=== PATIENT | female | born 1940 | race Caucasian/White ===

== ENCOUNTER 2017-03-08 13:21 | Emergency (ER) | payer OTHER ==
--- NOTE | 2017-03-08 15:35 | UC ---
Respiratory Complaint HPI - HPI Summary HPI Summary: Patient presents with 3-5 day onset complaints of cough, chest congestion. Last night she steamed herself over the sink and this morning she did cough up some sputum, she also report sinus pain, pressure, and green nasal discharge for one week. She states that this morning she also developed left eye redness, and green drainage. She denies any change in her vision, or eye pain. She denies any chest pain, dyspnea, fever, chills, nausea, vomiting or diarrhea. - History of Current Complaint Chief Complaint: UCRespiratory Stated Complaint: SINUS ISSUE EYE ISSUE Time Seen by Provider: 03/08/17 15:12 Hx Obtained From: Patient ?: No Onset/Duration: Gradual Onset, Lasting Days Timing: Constant Severity Initially: Mild Severity Currently: Moderate Character: Cough: Productive Aggravating Factors: Deep Breaths, Recumbent Position Alleviating Factors: Upright Position, Spontaneous Resolution Associated Signs And Symptoms: Positive: URI, Nasal Congestion, Sinus Discomfort - Risk Factors Pulmonary Embolism Risk Factors: Negative Cardiac Risk Factors: Negative Pseudomonas Risk Factors: Negative Tuberculosis Risk Factors: Negative - Allergies/Home Medications Allergies/Adverse Reactions: Allergies Allergy/AdvReac Type Severity Reaction Status Date / Time Latex Allergy Severe Anaphylatic Verified 03/08/17 13:54 Shock Sulfa Drugs Allergy Unknown Unknown Verified 03/08/17 13:54 Reaction Details BEE STINGS Allergy ANAPHYLACTI Uncoded 03/08/17 13:54 C PMH/Surg Hx/FS Hx/Imm Hx Previously Healthy: Yes - Surgical History Surgical History: Yes Surgery Procedure, Year, and Place: Carpal Tunnel Bilateral, Endarterectomy Left , Ovarian Cyst (ovary removed) - Family History Known Family History: Positive: Cardiac Disease - Social History Occupation: Retired Lives: Alone Alcohol Use: None Substance Use Type: None Smoking Status (MU): Never Smoked Tobacco - Immunization History Most Recent Influenza Vaccination: 2017 Review of Systems Constitutional: Negative Skin: Negative Eyes: Drainage, Eye Redness ENT: Negative Respiratory: Cough Cardiovascular: Negative Gastrointestinal: Negative Genitourinary: Negative Motor: Negative Is Patient Immunocompromised?: No All Other Systems Reviewed And Are Negative: Yes Physical Exam Triage Information Reviewed: Yes Appearance: Well-Appearing Vital Signs: Initial Vital Signs Temp 100.4 F 03/08/17 13:47 Pulse 81 03/08/17 13:47 Resp 14 03/08/17 13:47 BP 99/50 03/08/17 13:47 Pulse Ox 99 03/08/17 13:47 Eye Exam: Normal Eyes: Positive: Conjunctiva Inflamed, Discharge - left eye. no pain with movement of eyes laterally. eom intact. no periorbit swelling, rendess or pain. ENT: Positive: Sinus tenderness Neck exam: Normal Neck: Positive: 1 Respiratory Exam: Normal Respiratory: Positive: Rhonchi Cardiovascular Exam: Normal Abdominal Exam: Normal Musculoskeletal Exam: Normal Neurological Exam: Normal Psychological Exam: Normal Skin Exam: Normal UC Diagnostic Evaluation - Laboratory O2 Sat by Pulse Oximetry: 99 Respiratory Course/Dx - Course Course Of Treatment: Patient presents with 3-5 day onset sinus pain, pressure and green nasal discharge, this morning she also had left eye redness and green discharge, with no periorbital cellulitis. She was given RX for Azithromycin and polymyxin B/trimethoprim opth. If her symtpoms do not improve as anticipated she was told to follow up with her PCP. - Differential Dx/Diagnosis Differential Diagnosis/HQI/PQRI: Sinusitis, Other - conjunctivitis Provider Diagnoses: sinusitis. conjunctivitis Discharge - Discharge Plan Condition: Stable Disposition: HOME Prescriptions: Azithromyxin CARMENCITA (NF) [Z-Carmencita (Zithromax) 250 mg tabs #6] 2 tab PO .TODAY, THEN 1 DAILY #6 tab Polymyx/Trimethoprim OPTH* [Polytrim OPHTH*] 1 drop LEFT EYE Q3H #1 btl Patient Education Materials: Conjunctivitis (ED), Sinusitis (ED) Referrals: Chris Gardiner MD [Primary Care Provider] -
[2017-03-08 15:51] VITALS: BP 129/70
== END 2017-03-08 15:45 | disposition home or self-care (01) ==
LOC: UCEAST 13:21
DX: J32.9 Chronic sinusitis, unspecified (principal); H10.9 Unspecified conjunctivitis; Z88.2 Allergy status to sulfonamides; Z91.030 Bee allergy status; Z91.040 Latex allergy status
CPT/HCPCS: 99212; G0463